=== PATIENT | male | born 1960 | race Caucasian/White ===

== ENCOUNTER 2016-11-25 08:45 | Emergency (ER) | payer SELFPAY ==
[~2016-11-25] VITALS: Ht 175.3 cm; Wt 75.0 kg
[~2016-11-25 08:45] MED LIST: DOXY100T PO; SULF1TAB47 PO; Z.0.NO CURRENT MEDS
[2016-11-25 08:46] VITALS: BP 148/99; PULSE 72; RESP 16; TEMP 98.1; O2SAT 99
[2016-11-25] MEDS ORDERED: CYCL1TAB29 PO (09:25)
[2016-11-25] MEDS ORDERED: MOBI15TA PO (09:25)
--- NOTE | 2016-11-25 09:25 | PD ---
HPI Chief Complaint: Musculoskeletal Complaint Time Seen by Provider: 09:20 Travel History International Travel<30 days: No Contact w/Intl Traveler<30days: No Traveled to known affect area: No History of Present Illness HPI Patient is a 56-year-old male presenting to the emergency department for evaluation of low back pain. Patient states pains ongoing for 1 week however he started to exacerbate on Thursday. He states the pain is in his right lower back radiates down his right leg. He denies any weakness, bladder or bowel incontinence, saddle paresthesia. He denies any preceding injury or trauma. 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 He reports the pain is 8 out of 10 and describes it as tight. He has not taken anything consistently for the pain stating that he does not like to take medications. PFSH Past Medical History Medical History: Denies Significant Hx Diabetes: No Diminished Hearing: Yes ([facility] rt ear) Immunizations Current: No Social History Alcohol Use: Yes (21/week) Tobacco Use: Yes (1 ppd x 10 yrs.) Substance Use: No Allergies-Medications (Allergen,Severity, Reaction): Coded Allergies: No Known Allergies (Verified , 06/09/09) Reported Meds & Prescriptions Reported Meds & Active Scripts Active Doxycycline Hyclate 100 Mg Tab 100 Mg PO BID Bactrim Ds (Trimethoprim/Sulfamethoxazole) Tab 1 Tab PO BID Reported No Current Meds (Miscellaneous Medication) Misc Review of Systems Except as stated in HPI: all other systems reviewed are Neg Musculoskeletal: Positive: Myalgias, Cramping Neurologic: No: Weakness, Focal Abnormalities, Paresthesia, Incontinence, Sensory Disturbance Physical Exam Narrative GENERAL: Well-nourished, well-developed patient. SKIN: Focused skin assessment warm/dry. HEAD: Normocephalic. EYES: No scleral icterus. No injection or drainage. NECK: Supple, trachea midline. No JVD or lymphadenopathy. CARDIOVASCULAR: Regular rate and rhythm without murmurs, gallops, or rubs. RESPIRATORY: Breath sounds equal bilaterally. No accessory muscle use. GASTROINTESTINAL: Abdomen soft, non-tender, nondistended. MUSCULOSKELETAL: No cyanosis, or edema. Tenderness on palpation in right paraspinal musculature in the lumbar region. 5/5 muscle strength in bilateral lower extremities. Patient is neurovascularly intact. No spinal tenderness or step-off noted. BACK: Nontender without obvious deformity. No CVA tenderness. Data Data Last Documented VS Vital Signs Date Time Temp Pulse Resp B/P Pulse Ox O2 Delivery O2 Flow Rate FiO2 11/25/16 08:46 98.1 72 16 148/[address] [facility] Medical Decision Making Medical Screen Exam Complete: Yes Emergency Medical Condition: Yes Interpretation(s) Vital Signs Date Time Temp Pulse Resp B/P Pulse Ox O2 Delivery O2 Flow Rate FiO2 11/25/16 08:46 98.1 72 16 148/99 99 Differential Diagnosis Sprain versus strain versus spasm versus discogenic pain versus other Narrative Course Patient is a 56-year-old male presenting to the emergency department for evaluation of right lower back pain radiating down the back of his leg. Physical exam is consistent with muscle or skeletal strain and spasm. Symptoms are consistent with previous exacerbations of back pain. Patient is neurologically and neurovascularly intact. Patient be provided with meloxicam and muscle relaxer. He is encouraged to avoid bed rest, maintain active range of motion exercises, apply warm moist heat to the affected area. He was encouraged to follow-up with her primary doctor return to emergency department for any new or worsening symptoms. Additionally patient was advised to take medications consistently for the next 24-48 hours and then as needed. Patient verbalized understanding of instructions. Patient is stable for discharge. Diagnosis Primary Impression: Lumbar paraspinal muscle spasm Additional Impression: Strain of lumbar paraspinal muscle Qualified Code: S39.012A - Strain of lumbar paraspinal muscle, initial encounter Referrals: Primary Care Physician Patient Instructions: General Instructions, Muscle Spasm (ED), Muscle Strain ( ED) Additional Instructions: Avoid bed rest, avoid exacerbating activities, apply warm moist heat to the affected area Take medications as directed Return to emergency department for any new or worsening symptoms Follow-up with your primary doctor Med/Other Pt SpecificInfo: Prescription(s) given Scripts Cyclobenzaprine (Flexeril)10 Mg Tab10 Mg PO TID PRN (MUSCLE SPASM) 10 Days Ref 0 Prov:Kallie Hickman 11/25/16 Meloxicam (Mobic)15 Mg Tab15 Mg PO DAILY PRN (PAIN SCALE 1 TO 10) #30 TAB Ref 0 Prov:Kallie Hickman 11/25/16 Disposition: 01 DISCHARGE HOME Condition: Stable Kallie Hickman Luz BURDEN November 25, 2016 09:25
== END 2016-11-25 09:53 | disposition home or self-care (01) ==
LOC: NEPK 08:45
DX: M62.830 Muscle spasm of back (principal); F17.200 Nicotine dependence, unspecified, uncomplicated; S39.012A Strain of muscle, fascia and tendon of lower back, initial encounter; X50.9XXA Other and unspecified overexertion or strenuous movements or postures, initial encounter
CPT/HCPCS: 99284